=== PATIENT | male | born 1995 | race Caucasian/White ===

== ENCOUNTER 2020-07-28 16:34 | Emergency (ER) | payer SELFPAY ==
[~2020-07-28] VITALS: Ht 188 cm; Wt 81.6 kg
[2020-07-28 16:35] VITALS: BP_SYST 143
[2020-07-28] MEDS ORDERED: ED NON STOCK ORDER 1 EA MISC IV ONE (17:00)
[2020-07-28] MEDS ORDERED: MIDAZOLAM HCL 5 MG/5 ML VIAL IVP ONE (17:00)
[2020-07-28] MEDS ORDERED: KETAMINE HCL 500 MG/10 ML VIAL ONE (17:16)
[2020-07-28] MEDS ORDERED: HYDR-3917 PO (18:02)
[2020-07-28] MEDS ORDERED: IBUP-1971 PO (18:02)
[2020-07-28 19:02] VITALS: BP_SYST 143
== END 2020-07-28 19:03 | disposition home or self-care (01) ==
LOC: SED 16:34
DX: S52.502A Unspecified fracture of the lower end of left radius, initial encounter for closed fracture (principal); S52.612A Displaced fracture of left ulna styloid process, initial encounter for closed fracture; Z79.899 Other long term (current) drug therapy; W21.05XA Struck by basketball, initial encounter; Y93.67 Activity, basketball; Y92.89 Other specified places as the place of occurrence of the external cause; Y99.8 Other external cause status
CPT/HCPCS: 25605; 73110; 99152; 99285; J2250

== ENCOUNTER 2021-11-10 03:53 | Emergency (ER) | payer OTHER ==
[~2021-11-10] VITALS: Ht 185.4 cm; Wt 78.9 kg
[~2021-11-10 03:53] MED LIST: HYDR-3917 PO; IBUP-1971 PO
[2021-11-10 04:04] VITALS: BP_SYST 141
--- NOTE | 2021-11-10 04:10 | NUR ---
PT HERE C/O SPITTING BLOOD AFTER COUGHING X2 DAYS WITH SORETHRIAT X1 WK. PT DENIES FEVER, NO NIGHT SWEATS. DENIES N/V/D. PMH:DENIES PT AAOX4, NO SOB NOTED.
[2021-11-10] MEDS ORDERED: LIDOCAINE VISCOUS 2%, 15 ML UDC MM ONE (04:30)
[2021-11-10] MEDS ORDERED: TRANEXAMIC ACID 1,000 MG/10 ML VIAL TP ONE (04:30)
[2021-11-10] MEDS ORDERED: AMOX500C2 PO (05:34)
[2021-11-10] MEDS ORDERED: NAPR-1172 PO (05:34)
--- NOTE | 2021-11-10 05:41 | NUR ---
STREPT THROAT SWAB SENT TO LAB. Patient given written and verbal discharge instructions and verbalizes understanding. ER MD discussed with patient the results and treatment provided. Patient in stable condition. ID arm band removed. IV catheter removed intact and dressing applied, no active bleeding. Rx of AMOXICILLIN, NAPROSEN given. Patient educated on pain management and to follow up with PMD. Pain Scale . Opportunity for questions provided and answered. Medication side effect fact sheet provided.
== END 2021-11-10 05:41 | disposition home or self-care (01) ==
LOC: SED 03:53
DX: J02.9 Acute pharyngitis, unspecified (principal); R05.9 Cough, unspecified; Z79.899 Other long term (current) drug therapy
CPT/HCPCS: 99283; 86403; 36415; 87081; J2001; J3490

== ENCOUNTER 2022-12-18 09:46 | Emergency (ER) | payer MEDICAID, OTHER ==
[~2022-12-18] VITALS: Ht 185.4 cm; Wt 79.4 kg
[~2022-12-18 09:46] MED LIST changes: +AMOX500C2 PO; +NAPR-1172 PO
[2022-12-18 09:51] VITALS: BP_SYST 125; PULSE 89; RESP 16; TEMP 97.8; O2SAT 99
[2022-12-18] MEDS ORDERED: IBUPROFEN 600 MG TABLET PO ONE (10:00)
[2022-12-18] MEDS ORDERED: NAPR-688 PO (10:39)
[2022-12-18] MEDS ORDERED: TRAM50TA2 PO (10:39)
== END 2022-12-18 11:00 | disposition home or self-care (01) ==
LOC: SED 09:46
DX: S93.601A Unspecified sprain of right foot, initial encounter (principal); Z79.899 Other long term (current) drug therapy; W21.05XA Struck by basketball, initial encounter; Y93.67 Activity, basketball; Y92.89 Other specified places as the place of occurrence of the external cause; Y99.8 Other external cause status
CPT/HCPCS: 99283

== ENCOUNTER 2023-01-04 16:33 | Emergency (ER) | payer OTHER, MEDICAID ==
[~2023-01-04] VITALS: Ht 170.2 cm; Wt 72.6 kg
[~2023-01-04 16:33] MED LIST changes: +NAPR-688 PO; +TRAM50TA2 PO
[2023-01-04 16:45] VITALS: BP_SYST 108; PULSE 85; RESP 18; TEMP 98.3; O2SAT 98
[2023-01-04] MEDS ORDERED: IBUP-1971 PO (18:18)
[2023-01-04] MEDS ORDERED: SOM350 PO (18:18)
[2023-01-04 18:31] VITALS: BP_SYST 108; PULSE 85; RESP 18; TEMP 98.3; O2SAT 98
== END 2023-01-04 18:31 | disposition home or self-care (01) ==
LOC: SED 16:33
DX: S33.5XXA Sprain of ligaments of lumbar spine, initial encounter (principal); S13.4XXA Sprain of ligaments of cervical spine, initial encounter; Z79.899 Other long term (current) drug therapy; V89.2XXA Person injured in unspecified motor-vehicle accident, traffic, initial encounter; Y93.89 Activity, other specified; Y92.89 Other specified places as the place of occurrence of the external cause; Y99.8 Other external cause status
CPT/HCPCS: 72040-TC; 72100-TC; 99284

== ENCOUNTER 2023-07-27 11:08 | Emergency (ER) | payer MEDICAID, OTHER ==
[~2023-07-27] VITALS: Ht 185.4 cm; Wt 79.4 kg
[~2023-07-27 11:08] MED LIST changes: +SOM350 PO
[2023-07-27 11:17] VITALS: BP_SYST 140; PULSE 67; RESP 18; TEMP 98; O2SAT 96
[2023-07-27] MEDS: DIPHTH,PERTUSS(ACELL),TET VAC 0.5 ML VIAL (Tdap) I.M. ONE (12:30)
[2023-07-27 12:44] VITALS: BP_SYST 140; PULSE 67; RESP 18; TEMP 98; O2SAT 96
[2023-07-27] MEDS: LIDOCAINE 1% 10 MG/ML, 20 ML MDV INJ ONE (13:47)
== END 2023-07-27 13:16 | disposition home or self-care (01) ==
LOC: SED 11:08
DX: S01.111A Laceration without foreign body of right eyelid and periocular area, initial encounter (principal); W51.XXXA Accidental striking against or bumped into by another person, initial encounter; Y93.67 Activity, basketball; Y92.89 Other specified places as the place of occurrence of the external cause; Y99.8 Other external cause status
CPT/HCPCS: 99282; J2001

== ENCOUNTER 2023-08-04 15:58 | Emergency (ER) | payer OTHER ==
[~2023-08-04] VITALS: Ht 188 cm; Wt 79.4 kg
[2023-08-04 16:00] VITALS: BP_SYST 143; PULSE 60; RESP 18; TEMP 97; O2SAT 96
== END 2023-08-04 16:20 | disposition home or self-care (01) ==
LOC: SED 15:58
DX: S01.111D Laceration without foreign body of right eyelid and periocular area, subsequent encounter (principal); Z79.899 Other long term (current) drug therapy; Z79.2 Long term (current) use of antibiotics; X58.XXXD Exposure to other specified factors, subsequent encounter
CPT/HCPCS: 99281

== ENCOUNTER 2023-09-16 20:43 | Emergency (ER) | payer OTHER ==
[~2023-09-16] VITALS: Ht 185.4 cm; Wt 77.1 kg
[2023-09-16 20:58] VITALS: BP_SYST 133; PULSE 66; RESP 17; TEMP 98; O2SAT 99
[2023-09-16] MEDS: ACETAMINOPHEN 500 MG TABLET PO ONE (22:14)
[2023-09-16] MEDS ORDERED: IBUP-1969 PO (22:18)
[2023-09-16] MEDS ORDERED: ACET-2634 PO (22:18)
[2023-09-16 22:40] VITALS: BP_SYST 127; PULSE 67; RESP 18; O2SAT 99
== END 2023-09-16 22:40 | disposition home or self-care (01) ==
LOC: SED 20:43
DX: S83.8X2A Sprain of other specified parts of left knee, initial encounter (principal); Z79.899 Other long term (current) drug therapy; Z79.2 Long term (current) use of antibiotics; X50.1XXA Overexertion from prolonged static or awkward postures, initial encounter; Y93.67 Activity, basketball; Y92.89 Other specified places as the place of occurrence of the external cause; Y99.8 Other external cause status
CPT/HCPCS: 73560; 99283